=== PATIENT | male | born 1975 | race Two or more races ===

== ENCOUNTER → 2022-01-22 | Emergency (ER) | payer OTHER ==
[~2022-01-22] VITALS: Ht 170.2 cm; Wt 83.9 kg
[~2022-01-22] MED LIST: CHILDREN'S ASPI81 MG; CRESTOR20 MG; IBERSARTAN; PEPCID AC10 MG; PLAVIX75 MG
== END | disposition home or self-care (01) ==
LOC: ER 17:19
DX: U07.1 COVID-19 (principal); B34.9 Viral infection, unspecified; I10 Essential (primary) hypertension

== ENCOUNTER 2022-01-24 08:30 | Outpatient (CLI) | payer OTHER | END 2022-01-24 09:35 | disposition home or self-care (01) | LOC: ASH CLINIC 08:30 | PROVIDERS: ATTEND Emergency Medicine | DX: Z23 Encounter for immunization (principal); U07.1 COVID-19 ==